=== PATIENT | male | born 1960 | race African-American/Black ===

== ENCOUNTER 2016-12-20 13:40 | Emergency (ER) | payer OTHER | END 2016-12-20 13:55 | disposition home or self-care (01) | LOC: ER 13:40 | DX: S16.1XXA Strain of muscle, fascia and tendon at neck level, initial encounter (principal); F17.200 Nicotine dependence, unspecified, uncomplicated; I10 Essential (primary) hypertension; E11.9 Type 2 diabetes mellitus without complications; Z79.899 Other long term (current) drug therapy; V89.2XXA Person injured in unspecified motor-vehicle accident, traffic, initial encounter | CPT/HCPCS: 72050; 99283; A9270-GY ==